=== PATIENT | female | born 1930 | race Caucasian/White ===

== ENCOUNTER → 2018-04-22 | Outpatient (CLI) | payer MEDICARE, OTHER ==
--- NOTE | 2018-04-22 14:02 | Diagnostic Imaging Report ---
INDICATION: Nonambulatory. FINDINGS: There are mild degenerative changes in the right hip. There is no fracture or dislocation. Soft tissues are unremarkable. IMPRESSION: Osteopenia and degenerative changes of right hip, however no acute fracture or dislocation. In light of the degree of osteopenia, if there is a high clinical concern for fracture, further evaluation with CT should be considered. Dictated by: Dictated on workstation # [id number]
--- NOTE | 2018-04-22 14:14 | Diagnostic Imaging Report ---
INDICATION: Pain. FINDINGS: There is a transverse fracture through the proximal phalanx of the right fifth toe. The alignment is otherwise normal. There is no other fracture or dislocation. IMPRESSION: Nondisplaced transverse fracture through the proximal diaphysis of the right fifth toe Dictated by: Dictated on workstation # [id number]
== END ==
LOC: RAD 12:58
PROVIDERS: ATTEND Nurse Practitioner Family
DX: S92.514A Nondisplaced fracture of proximal phalanx of right lesser toe(s), initial encounter for closed fracture (principal); M85.88 Other specified disorders of bone density and structure, other site; M16.11 Unilateral primary osteoarthritis, right hip
CPT/HCPCS: 73502; 73630

== ENCOUNTER → 2018-05-01 | Outpatient (CLI) | payer MEDICARE, OTHER ==
--- NOTE | 2018-05-01 15:49 | Diagnostic Imaging Report ---
PROCEDURE: CT pelvis without contrast. TECHNIQUE: Multiple contiguous axial images were obtained through the pelvis without the use of intravenous contrast. Sagittal and coronal reformations were performed. INDICATION: Right-sided pain. COMPARISON: There are no previous studies available for comparison. FINDINGS: There is no fracture or acute bony abnormality identified. There does appear to be at least moderate degenerative disease of both hip and sacroiliac joints, particularly the right sacroiliac joint. There is no pelvic mass or free fluid collection noted. However, there is a large fecal impaction. The bladder is also distended by urine. The uterus is grossly unremarkable. 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 IMPRESSION: 1. There is no evidence for an acute bony abnormality. 2. If there is clinical concern regarding a sacral insufficiency fractures, then MRI would be recommended for further study. 3. The bladder is distended by urine, and there is a fecal impaction. 4. These results were discussed with Dr. Lopez. Dictated by: Dictated on workstation # [id number]
== END ==
LOC: RAD 15:08
PROVIDERS: ATTEND Family Medicine
DX: N32.89 Other specified disorders of bladder (principal)
CPT/HCPCS: 72192

== ENCOUNTER → 2018-05-15 | Outpatient (CLI) | payer MEDICARE, OTHER ==
--- NOTE | 2018-05-15 16:37 | Diagnostic Imaging Report ---
INDICATION: Followup toe fracture. TIME OF EXAM: 1:59 PM COMPARISON: Correlation is made with prior radiographs from 04/22/2018. FINDINGS: Three views of the right foot were obtained. There is blurring of the fracture at the base of the proximal phalanx fifth toe consistent with some healing. Fracture line does remain partly visible however. No displacement or angulation is seen. No new fractures identified. IMPRESSION: Healing fracture of the proximal phalanx fifth toe. Fracture line does remain partly visible however. Dictated by: Dictated on workstation # [id number]
== END ==
LOC: RAD 13:23
PROVIDERS: ATTEND Nurse Practitioner Family
DX: S92.911D Unspecified fracture of right toe(s), subsequent encounter for fracture with routine healing (principal)
CPT/HCPCS: 73630

== ENCOUNTER 2019-07-18 03:57 | Emergency (ER) | payer MEDICARE, OTHER ==
[~2019-07-18] VITALS: Ht 154 cm; Wt 52.0 kg
--- NOTE | 2019-07-18 04:24 | ED Fall/Injury ---
General Chief Complaint: Laceration Stated Complaint: HEAD LAC Source: patient, EMS, longterm records History of Present Illness Date Seen by Provider: Jul 18, 2019 Time Seen by Provider: 03:57 Initial Comments 88-year-old female presents by EMS from [facility]. She has advanced dementia and presents with having a fall. She has a laceration to her left forehead and denominational area. She had a fall at the [facility] longterm. There are no other obvious injuries. She cannot give any details about her fall due to her dementia. She is moving all extremities and has no complaints. Allergies and Home Medications Allergies Coded Allergies: No Known Drug Allergies (Unverified , 07/18/19) Patient Home Medication List Home Medication List Reviewed: Yes Review of Systems Review of Systems Constitutional: no symptoms reported; No chills, No fever Eyes: Drainage, Inflammation Ears, Nose, Mouth, Throat: no symptoms reported Respiratory: no symptoms reported Cardiovascular: no symptoms reported Gastrointestinal: no symptoms reported Genitourinary: no symptoms reported Musculoskeletal: no symptoms reported Skin: other (laceration to left forehead/denominational area) Past Ocxwqow-Aomdfy-Nrtzcn Hx Past Med/Social Hx: Reviewed Nursing Past Med/Soc Hx Patient Social History Recent Hopitalizations: No Physical Abuse: No Sexual Abuse: No Mistreated: No Fear: No Past Medical History Surgeries: No Respiratory: No Cardiac: Yes Hypertension Neurological: Yes Dementia Genitourinary: No Gastrointestinal: No Musculoskeletal: No Endocrine: No HEENT: No Cancer: Yes Skin, Colon Psychosocial: No Integumentary: No Blood Disorders: No Physical Exam Vital Signs Vital Signs - First Documented 07/18/19 04:05 Temp 35.9 Pulse 76 Resp 16 B/P (MAP) 183/68 (106) Pulse Ox 96 O2 Delivery Room Air Capillary Refill : Height, Weight, BMI Height: '" Weight: lbs. oz. kg; BMI Method: General Appearance: no apparent distress HEENT: other (drainage from both eyes with crusted over eyelids. No ocasio sign. no raccoon sign. No drainage or bleeding from nose or ears. ) Neck: non-tender, full range of motion, supple Cardiovascular: normal peripheral pulses, regular rate, rhythm Respiratory: chest non-tender, lungs clear, normal breath sounds Extremities: normal range of motion, non-tender, normal inspection, normal capillary refill Neurologic/Psychiatric: alert; No oriented x 3 (oriented to self only) Skin: warm/dry, pallor, other (1.8 cm laceration to left forehead/denominational area) [place] Coma Score Best Eye Response: (4) Open Spontaneously Best Verbal Response: (5) Oriented Best Motor Response: (6) Obeys Commands [place] Total: 15 Procedures/Interventions Wound Location: Face (left forehead) Wound Length (cm): 1.8 Wound's Depth, Shape: sub Q Wound Explored: clean Other Closure Supply: Wound Adhesive Progress Wound cleaned with chlorhexidine and sterile water. No foreign bodies seen. Wound edges approximated and sealed with tissue adhesive. pt tolerated procedure well without any immediate complication. Progress/Results/Core Measures Results/Orders Vital Signs/I&O 07/18/19 07/18/19 04:05 04:34 Temp 35.9 Pulse 76 76 Resp 16 16 B/P (MAP) 183/68 (106) 183/68 Pulse Ox 96 96 O2 Delivery Room Air Room Air Progress Progress Note : Progress Note The wound was cleaned with chlorhexidine and sterile water. The laceration was then sealed with Dermabond. The wound edges were well approximated. With no additional injuries noted on exam and since she is not on any blood thinners no additional imaging was performed. Will discharge back to [facility] longterm Departure Impression Primary Impression: Forehead laceration Qualified Codes: S01.81XA - Laceration without foreign body of other part of head, initial encounter Additional Impression: Fall at longterm Qualified Codes: W19.XXXA - Unspecified fall, initial encounter; Y92.129 - Unspecified place in longterm as the place of occurrence of the external cause Disposition: 01 HOME, SELF-CARE Condition: Stable Departure-Patient Inst. Decision time for Depature: 04:32 Referrals: TARA WALLER MD (PCP/Family) Primary Care Physician Patient Instructions: Laceration Repair With Glue (DC), Preventing Falls in the Older Adult Add. Discharge Instructions: Keep wound clean and dry for 24 hours then may wash with soap and water but do not soak the wound. Do not apply antibiotic ointment or lotions to the glue or it will cause the glue to come off early and have the wound open All discharge instructions reviewed with patient and/or family. Voiced understanding. NESTOR SALAZAR MD Jul 18, 2019 04:24
[2019-07-18 04:34] VITALS: BP 183/68
== END 2019-07-18 04:42 | disposition home or self-care (01) ==
LOC: EDUNIT# 03:57 → ER FS 03:58
DX: S01.81XA Laceration without foreign body of other part of head, initial encounter (principal); I10 Essential (primary) hypertension; F03.90 Unspecified dementia, unspecified severity, without behavioral disturbance, psychotic disturbance, mood disturbance, and anxiety; R40.2142 Coma scale, eyes open, spontaneous, at arrival to emergency department; R40.2252 Coma scale, best verbal response, oriented, at arrival to emergency department; R40.2362 Coma scale, best motor response, obeys commands, at arrival to emergency department; Z85.828 Personal history of other malignant neoplasm of skin; Z85.038 Personal history of other malignant neoplasm of large intestine; W19.XXXA Unspecified fall, initial encounter; Y92.129 Unspecified place in nursing home as the place of occurrence of the external cause
CPT/HCPCS: 99283

== ENCOUNTER 2019-08-05 19:11 | Inpatient (IN) | payer MEDICARE, OTHER ==
[~2019-08-05] VITALS: Ht 157.5 cm; Wt 52.0 kg
--- NOTE | 2019-08-05 19:26 | ED Fall/Injury ---
General Stated Complaint: FALL Source: patient, EMS Exam Limitations: clinical condition History of Present Illness Date Seen by Provider: Aug 05, 2019 Time Seen by Provider: 19:10 Initial Comments The patient is a pleasant 88-year-old female from [place] who presents via EMS for evaluation of left pelvis/hip pain after a fall earlier today. The patie nt believes that she hit her head but denies any loss of consciousness or neck pain. She is not anticoagulated. Currently her only complaint is left hip pain. She denies chest pain or shortness of breath, abdominal or back pain, nausea or vomiting, focal weakness or numbness. She is alert, calm, and appears to be in no distress. EMS did give the patient 50 g of fentanyl on route as she appeared quite uncomfortable. Occurred: this afternoon Severity: severe Injuries/Pain Location: lower extremity (left hip) Context: unknown Loss of Consciousness: no loss of consciousness Associated Symptoms (Fall): Denies Symptoms Allergies and Home Medications Allergies Coded Allergies: No Known Drug Allergies (Unverified , 07/18/19) Patient Home Medication List Home Medication List Reviewed: Yes Review of Systems Review of Systems Constitutional: no symptoms reported Eyes: No Symptoms Reported Ears, Nose, Mouth, Throat: no symptoms reported Respiratory: no symptoms reported Cardiovascular: no symptoms reported Gastrointestinal: no symptoms reported Genitourinary: no symptoms reported : No Musculoskeletal: joint pain (left pelvis/hip pain) Skin: no symptoms reported Psychiatric/Neurological: No Symptoms Reported All Other Systems Reviewed Negative Unless Noted: Yes Past Vrxmczt-Xovymu-Sirmmv Hx Past Med/Social Hx: Reviewed Nursing Past Med/Soc Hx Patient Social History Recent Foreign Travel: No Contact w/Someone Who Travel: No Recent Hopitalizations: No Past Medical History Surgeries: No Respiratory: No Cardiac: Yes Hypertension Neurological: Yes Dementia Genitourinary: No Gastrointestinal: No Musculoskeletal: No Endocrine: No HEENT: No Cancer: Yes Skin, Colon Psychosocial: No Integumentary: No Blood Disorders: No Physical Exam Vital Signs Vital Signs - First Documented 08/05/19 19:12 Temp 36.8 Pulse 100 Resp 18 B/P (MAP) 204/170 (181) Pulse Ox 93 O2 Delivery Room Air Capillary Refill : Height, Weight, BMI Height: '" Weight: lbs. oz. kg; 21.00 BMI Method: General Appearance: WD/WN, no apparent distress HEENT: PERRL/EOMI, pharynx normal Neck: non-tender, full range of motion Cardiovascular: regular rate, rhythm, no edema, no JVD Respiratory: chest non-tender, lungs clear, normal breath sounds Gastrointestinal: normal bowel sounds, non tender, soft, no pulsatile mass Back: normal inspection, no vertebral tenderness Extremities: no pedal edema, no calf tenderness, normal capillary refill, other (ttp over left anterior pelvis (ASIS) and left hip laterally, questionable shortening of LLE, pt bending both knees and will not allow movement of left hip 2/2 discomfort) Neurologic/Psychiatric: alert, normal mood/affect Skin: normal color, warm/dry Reading Coma Score Best Eye Response: (4) Open Spontaneously Best Verbal Response: (5) Oriented Best Motor Response: (6) Obeys Commands Progress/Results/Core Measures Results/Orders Lab Results Laboratory Tests Test 08/05/19 19:25 Range/Units White Blood Count 7.0 4.3-11.0 10^3/uL Red Blood Count 5.16 4.35-5.85 10^6/uL Hemoglobin 14.3 11.5-16.0 G/DL Hematocrit 45 35-52 % Mean Corpuscular Volume 87 80-99 FL Mean Corpuscular Hemoglobin 28 25-34 PG Mean Corpuscular Hemoglobin Concent 32 32-36 G/DL Red Cell Distribution Width 14.6 H 10.0-14.5 % Platelet Count 177 130-400 10^3/uL Mean Platelet Volume 11.0 H 7.4-10.4 FL Neutrophils (%) (Auto) 70 42-75 % Lymphocytes (%) (Auto) 18 12-44 % Monocytes (%) (Auto) 10 0-12 % Eosinophils (%) (Auto) 1 0-10 % Basophils (%) (Auto) 0 0-10 % Neutrophils # (Auto) 4.9 1.8-7.8 X 10^3 Lymphocytes # (Auto) 1.2 1.0-4.0 X 10^3 Monocytes # (Auto) 0.7 0.0-1.0 X 10^3 Eosinophils # (Auto) 0.1 0.0-0.3 10^3/uL Basophils # (Auto) 0.0 0.0-0.1 10^3/uL Prothrombin Time 12.7 12.2-14.7 SEC INR Comment 0.9 0.8-1.4 Activated Partial Thromboplast Time < 20 L 24-35 SEC Sodium Level 137 135-145 MMOL/L Potassium Level 5.5 H 3.6-5.0 MMOL/L Chloride Level 101 98-107 MMOL/L Carbon Dioxide Level 22 21-32 MMOL/L Anion Gap 14 5-14 MMOL/L Blood Urea Nitrogen 14 7-18 MG/DL Creatinine 0.75 0.60-1.30 MG/DL Estimat Glomerular Filtration Rate > 60 BUN/Creatinine Ratio 19 Glucose Level 168 H 70-105 MG/DL Calcium Level 9.0 8.5-10.1 MG/DL Corrected Calcium 9.3 8.5-10.1 MG/DL Total Bilirubin 0.2 0.1-1.0 MG/DL Aspartate Amino Transf (AST/SGOT) 35 H 5-34 U/L Alanine Aminotransferase (ALT/SGPT) 21 0-55 U/L Alkaline Phosphatase 158 H 40-136 U/L Total Protein 7.3 6.4-8.2 GM/DL Albumin 3.6 3.2-4.5 GM/DL My Orders Orders - ZANDRA HERMAN DO Chest 1 View Ap/Pa Only (08/05/19 19:18) Pelvis With Left Hip 2-3 View (08/05/19 19:18) Cbc With Automated Diff (08/05/19 19:18) Comprehensive Metabolic Panel (08/05/19 19:18) Protime With Inr (08/05/19 19:18) Partial Thromboplastin Time (08/05/19 19:18) Ct Head/Cervical Spine Wo (08/05/19 19:18) Ed Iv/Invasive Line Start (08/05/19 19:35) Fentanyl Injection (Sublimaze Injection (08/05/19 19:45) Lorazepam Injection (Ativan Injection) (08/05/19 19:45) Fentanyl Injection (Sublimaze Injection (08/05/19 20:45) Ns Iv 1000 Ml (Sodium Chloride 0.9%) (08/05/19 20:45) Medications Given in ED Current Medications Medications Dose Ordered Sig/[place] Route Start Time Stop Time Status Last Admin Dose Admin Fentanyl Citrate 50 mcg ONCE ONCE IVP 08/05/19 19:45 08/05/19 19:46 DC 08/05/19 20:08 50 MCG Fentanyl Citrate 50 mcg ONCE ONCE IVP 08/05/19 20:45 08/05/19 20:46 DC 08/05/19 20:53 50 MCG Lorazepam 0.5 mg ONCE PRN IVP 08/05/19 19:45 08/05/19 19:52 0.5 MG Vital Signs/I&O 08/05/19 19:12 Temp 36.8 Pulse 100 Resp 18 B/P (MAP) 204/170 (181) Pulse Ox 93 O2 Delivery Room Air Progress Progress Note : Progress Note @2044 - Patient and detention nurse updated on x-ray finding of hip fracture and laboratory finding of hyperkalemia. I discussed the case with the patient's daughter, Heath, who agrees with the plan to transfer to [facility]. The case was discussed with the patient's PCP, Dr. Lopez, who agrees with the transfer. She has spoken with Dr. Ramos from orthopedics and states that he accepts the consultation. Patient is stable for transfer. Departure Communication (Admissions) Time/Spoke to Admitting Phy: 20:45 Dr. Lopez states she accepts the admission to the fourth floor at [facility]. She is discussed the case with Dr. Ramos (ortho) who accepts the consultation. Impression Primary Impression: Closed left hip fracture Additional Impression: Acute hyperkalemia Disposition: ADMITTED INPATIENT Condition: Stable Admissions Decision to Admit Reason: Admit from ER (General) Decision to Admit/Date: Aug 05, 2019 Time/Decision to Admit Time: 20:45 Departure-Patient Inst. Referrals: TARA LOPEZ MD (PCP/Family) Primary Care Physician ZANDRA HERMAN DO Aug 05, 2019 19:26 POS
[2019-08-05 19:34] LABS: BASOPHILS % (AUTO) 0 % (0-10); EOSINOPHILS # (AUTO) 0.1 10^3/uL (0.0-0.3); EOSINOPHILS % (AUTO) 1 % (0-10); HEMATOCRIT 45 % (35-52); HEMOGLOBIN 14.3 G/DL (11.5-16.0); LYMPHOCYTES # (AUTO) 1.2 X 10^3 (1.0-4.0); LYMPHOCYTES % (AUTO) 18 % (12-44); MEAN CORPUSCULAR HEMOGLOBIN 28 PG (25-34); MEAN CORPUSCULAR HGB CONC 32 G/DL (32-36); MEAN CORPUSCULAR VOLUME 87 FL (80-99); MONOCYTES # (AUTO) 0.7 X 10^3 (0.0-1.0); MONOCYTES % (AUTO) 10 % (0-12); NEUTROPHILS # (AUTO) 4.9 X 10^3 (1.8-7.8); NEUTROPHILS % (AUTO) 70 % (42-75); PLATELET COUNT 177 10^3/uL (130-400); RED CELL DISTRIBUTION WIDTH 14.6 % (10.0-14.5)
[2019-08-05] MEDS ORDERED: LORazepam INJ 2 MG/ML (ATIVAN) VIAL IVP PRN (19:45)
[2019-08-05] MEDS ORDERED: fentaNYL INJECTION 100 MCG/2 ML AMP IVP ONE ×2 (19:45→20:45)
[2019-08-05 19:49] LABS: INR 0.9 (0.8-1.4); PARTIAL THROMBOPLASTIN TIME < 20 SEC (24-35); PROTHROMBIN TIME PATIENT 12.7 SEC (12.2-14.7)
[2019-08-05 19:52] LABS: CARBON DIOXIDE 22 MMOL/L (21-32); CHLORIDE 101 MMOL/L (98-107); POTASSIUM 5.5 MMOL/L (3.6-5.0); SODIUM 137 MMOL/L (135-145)
[2019-08-05 19:53] LABS: ALANINE AMINOTRANSFERASE 21 U/L (0-55); ALBUMIN 3.6 GM/DL (3.2-4.5); ALKALINE PHOSPHATASE 158 U/L (40-136); BILIRUBIN,TOTAL 0.2 MG/DL (0.1-1.0); BUN/CREATININE RATIO 19; CREATININE SERUM 0.75 MG/DL (0.60-1.30); GFR ESTIMATED > 60; GLUCOSE 168 MG/DL (70-105); TOTAL PROTEIN 7.3 GM/DL (6.4-8.2)
--- NOTE | 2019-08-05 20:18 | Diagnostic Imaging Report ---
PROCEDURE: CT head and CT cervical spine without contrast. TECHNIQUE: Multiple contiguous axial images were obtained through the brain and cervical spine without the use of intravenous contrast. Sagittal and coronal reformations through the cervical spine were then performed. Auto Exposure Controls were utilized during the CT exam to meet ALARA standards for radiation dose reduction. INDICATION: Fell out of wheelchair. CT HEAD: There is diffuse atrophy. There is considerable motion artifact. Ventricles are not dilated. No evidence of intracranial hemorrhage. No extra-axial fluid collection. Basal cisterns are clear. Mastoid air cells are well-aerated. No calvarial fracture is demonstrated. IMPRESSION: Negative CT head which is limited due to patient motion. CT CERVICAL SPINE: Sagittal and coronal reformatted images show good alignment. Body height well-maintained. The atlantoaxial joint is in good alignment. Facets show good alignment. Advanced degenerative cervical disc and facet disease noted throughout. No significant spinal stenosis noted. There are no acute fractures. There is noted rather large exostosis off of the palate in the upper mouth. Soft tissues otherwise appear normal. IMPRESSION: 1. Advanced degenerative cervical disc and facet disease without acute abnormalities. 2. Large exostosis is noted along the roof of the mouth arising from the maxilla. This is only partially visualized. Dictated by: Dictated on workstation # [id number]
--- NOTE | 2019-08-05 20:20 | Diagnostic Imaging Report ---
INDICATION: Fall. Left hip pain. FINDINGS: Portable chest. The lungs are well aerated. There is cardiomegaly. There does appear to be some atelectasis or infiltrate in the left lower lung in retrocardiac region. No evidence of pleural effusion. No pneumothorax. There are multiple dense benign-appearing calcifications in left upper lung. No evidence of rib fracture. IMPRESSION: 1. Cardiomegaly. 2. Density in the retrocardiac region consistent with either atelectasis or pulmonary infiltrate. Dictated by: Dictated on workstation # [id number]
--- NOTE | 2019-08-05 20:21 | Diagnostic Imaging Report ---
INDICATION: Fall. FINDINGS: 3 views. There is a subcapital fracture of the left femur. Femoral head is in normal articulation with the acetabulum. Right hip is intact. Moderate degenerative changes are noted. Bony pelvis shows good alignment of the SI joints and pubic symphysis without fracture. IMPRESSION: Subcapital fracture of the left femur. Dictated by: Dictated on workstation # [id number]
[2019-08-05] MEDS ORDERED: NS IV 1000 ML 500 ML IV SCH (20:45)
[2019-08-05] MEDS ORDERED: LORazepam INJ 2 MG/ML (ATIVAN) VIAL IVP ONE (21:30)
[2019-08-05 23:15] VITALS: BP 195/106
--- NOTE | 2019-08-05 23:15 | NUR ---
MURCIALIZ admitted to room 432-1, with an admitting diagnosis of left hip fracture and hyperkalemia, on 08/05/19 from [facility] via EMS, accompanied by EMS and daughter. Daughter and patient introduced to surroundings, call light, bed controls, phone, TV, temperature control, lights, meal times, smoking policy, visitor policy, side rail policy, bathrooms and showers. Patient Rights given to patient in the handbook. Daughter verbalizes understanding that [facility] is not responsible for the loss or damage to any personal effects or valuables that are kept in the patients possession during their hospitalization.
[2019-08-05] MEDS ORDERED: LORazepam INJ 2 MG/ML (ATIVAN) VIAL IV PRN (23:45)
[2019-08-06] VITALS (10 sets, daily range): BP systolic 132–182; BP diastolic 69–82
--- NOTE | 2019-08-06 | NUR ---
Dr. Lopez notified of bp running high in ER and EMS on transport with current BP at 195/106 hr at 89. also informed of DVT risk score, pt attempting to get out of bed, code status, and IV to heplock. New orders rec for NS at 50 mls/hr; Norvasc 5mg po at HS (give dose now), Hydralazine 10mg PO q 6 hr PRN for SBP > 150; DNR/DNI; Haldol 2mg IV/IM q 6 hr PRN agitation; SCD to right leg only for DVT prophylaxis at this time.
[2019-08-06] MEDS ORDERED: amLODIPine 5 MG (NORVASC) TAB ONE (00:11)
[2019-08-06] MEDS ORDERED: HALOPERIDOL 5 MG/ML (HALDOL) AMP ONE (00:11)
[2019-08-06] MEDS ORDERED: NS IV 1000 ML 1,000 ML ONE (00:13)
[2019-08-06] MEDS ORDERED: HALOPERIDOL 5 MG/ML (HALDOL) AMP IM/IV PRN (00:15)
[2019-08-06] MEDS: amLODIPine 5 MG (NORVASC) TAB PO SCH ×2 (00:21→21:15)
[2019-08-06] MEDS: NS IV 1000 ML 1,000 ML IV SCH ×2 (00:21→21:06)
[2019-08-06] MEDS ORDERED: PARO25TA15 PO (03:32)
[2019-08-06] MEDS ORDERED: POLY17PO6 PO (03:32)
[2019-08-06] MEDS ORDERED: NSTR15C TP (03:32)
[2019-08-06] MEDS ORDERED: CHOL10007 PO (03:32)
[2019-08-06] MEDS ORDERED: CYAN-41 PO (03:32)
[2019-08-06] MEDS ORDERED: HALO5AMP PO (03:32)
[2019-08-06] MEDS ORDERED: SENN-141 PO (03:43)
[2019-08-06] MEDS ORDERED: FERR325T18 PO (03:43)
[2019-08-06] MEDS ORDERED: AMLO5TAB9 PO (03:43)
[2019-08-06] MEDS ORDERED: NA P133E22 RC (03:43)
[2019-08-06] MEDS ORDERED: ABH GEL TOP (03:43)
[2019-08-06] MEDS ORDERED: CARB15DR OU (03:43)
[2019-08-06] MEDS ORDERED: NITR1OIN TD (03:43)
[2019-08-06] MEDS ORDERED: DICL100G18 TP (03:43)
[2019-08-06] MEDS ORDERED: ACET325T38 PO (03:43)
[2019-08-06] MEDS ORDERED: NYST15CR TP (08:26)
[2019-08-06] MEDS ORDERED: ACET-2429 PO (08:26)
[2019-08-06] MEDS ORDERED: SENN-145 PO (08:26)
[2019-08-06] MEDS ORDERED: HALO2ORA PO (08:26)
[2019-08-06] MEDS ORDERED: PETR18JE3 TP (08:30)
--- NOTE | 2019-08-06 08:31 | NUR ---
UPDATED MED REC WITH MAR THAT WAS ON THE PATIENTS CHART.
--- NOTE | 2019-08-06 08:39 | History & Physical ---
History of Present Illness History of Present Illness Reason for visit/HPI PT IS AN 88 Y/O FEMALE WHO IS KNOWN TO ME FROM CLINIC. SHE PRESENTED TO THE [facility] AFTER SUSTAINING A FALL AT THE NURSING WHERE SHE RESIDES. SHE HAS BEEN NON-AMBULATORY FOR QUITE SOME TIME DUE TO HER ADVANCED DEMENTIA. SHE HAS HAD SEVERAL FALLS OVER THE PAST MONTH WITH THIS LAST FALL RESULTING IN A LEFT SUBCAPITAL HIP FRACTURE. Date of Admission Aug 05, 2019 at 21:15 Date Seen by a Provider: Aug 06, 2019 Time Seen by a Provider: 08:55 I consulted on this patient on 08/06/19 08:55 Attending Physician Tara Lopez MD Admitting Physician Tara Lopez MD Consult ORTHOPEDIC SURGEON Allergies and Home Medications Allergies Coded Allergies: No Known Drug Allergies (Unverified , 07/18/19) Home Medications Acetaminophen 650 Mg Tablet.er, 650 MG PO Q4H PRN for PAIN-MILD, (Reported) Amlodipine Besylate 5 Mg Tablet, 5 MG PO DAILY, (Reported) Carboxymethylcellulose Sodium 15 Ml Drops, 2 DROPS OU BID, (Reported) Cholecalciferol (Vitamin D3) 1,000 Unit Capsule, 1,000 UNIT PO DAILY, (Reported) Cyanocobalamin (Vitamin B-12) 1,000 Mcg Tablet, 1,000 MCG PO DAILY, (Reported) Diclofenac Sodium 100 Gm Gel..gram., TP QID PRN for JOINT PAIN, (Reported) APPLY TO ANKLE, KNEE, RIGHT HIP, AND OR BACK Ferrous Sulfate 325 Mg Tablet, 325 MG PO DAILY, (Reported) Haloperidol Lactate 2 Mg/1 Ml Oral.conc, 0.25 ML PO TID, (Reported) Na Phos,M-B/Na Phos,Di-Ba 133 Ml Enema, 133 ML RC BID PRN for CONSTIPATION, (Reported) Nitroglycerin 1 Gm Oint...g., 0.5 INCH TD Q4H PRN for BP>170, (Reported) APPLY 1/2 INCH TO CHEST WALL Nystatin 15 Gm Cream..g., TP QID PRN for GAULDING, (Reported) Paroxetine HCl 25 Mg Tab.er.24h, 25 MG PO DAILY, (Reported) Petrolatum,White 18 Ml Jelly.ml., TP BID, (Reported) APPLY TO DRY AREA ON RIGHT CHEEK TWICE DAILY UNTIL HEALED Polyethylene Glycol 3350 17 Gm Powd.pack, 17 GM PO DAILY PRN for CONSTIPATION- 2ND LINE, (Reported) Sennosides/Docusate Sodium 1 Each Tablet, 1 TAB PO BID, (Reported) [Abh Gel] , 0.25 ML TOP TID PRN for AGITATION, (Reported) ABH GEL (Ativan, Benadryl, Haldol) - apply to inner wrist or upper back TID PRN agitation Patient Home Medication List Home Medication List Reviewed: Yes Past Pxlcisg-Tmvmnr-Izfpud Hx Past Med/Social Hx: Reviewed Nursing Past Med/Soc Hx Patient Social History Marrital Status: Number of Children: 2 Number of living children: 2 Living Status: LIVES IN [facility] Employed/Student: retired Alcohol Use: Denies Use Recreational Drug Use: No Smoking Status: Never a Smoker 2nd Hand Smoke Exposure: No Physical Abuse Screen: No Sexual Abuse: No Recent Foreign Travel: No Contact w/other who traveled: No Recent Hopitalizations: No Recent Infectious Disease Expo: No Immunizations Up To Date Date of Influenza Vaccine: Jul 08, 2019 Seasonal Allergies Seasonal Allergies: No Past Medical History Currently Using CPAP: No Currently Using BIPAP: No Cardiac: Hypertension Neurological: Dementia : No Reproductive: No Sexually Transmitted Disease: No HIV/AIDS: No Female Reproductive Disorders: Denies Menopausal Loss of Vision: Denies Hearing Impairment: Hard of Hearing Cancer: Skin, Colon History of Blood Disorders: No Family History Reviewed Nursing Family Hx FH: breast cancer G8 SISTER FH: heart disease 19 FATHER Heart Disease, Cancer Review of Systems Constitutional: No chills, No fever; malaise, weakness EENTM: No hoarseness, No throat pain Respiratory: No cough, No dyspnea on exertion, No short of breath Cardiovascular: No edema Gastrointestinal: No abdominal pain Genitourinary: no symptoms reported Musculoskeletal: other (PAIN IN LEFT HIP) Psychiatric/Neurological: Anxiety, Depressed, Weakness, Other (DEMENTIA) All Other Systems Reviewed Negative Unless Noted: Yes Physical Exam Vital Signs Vital Signs - First Documented 08/05/19 08/05/19 19:12 22:14 Temp 36.8 Pulse 100 Resp 18 B/P (MAP) 204/170 (181) Pulse Ox 93 O2 Delivery Room Air O2 Flow Rate 4.00 Capillary Refill : Less Than 3 SecondsLess Than 3 Seconds Height, Weight, BMI Height: '" Weight: lbs. oz. kg; 20.96 BMI Method: General Appearance: No Apparent Distress (PT SLEEPING), Thin Neck: Supple Respiratory: Chest Non Tender, Lungs Clear, Normal Breath Sounds, No Accessory Muscle Use, No Respiratory Distress Cardiovascular: Regular Rate, Rhythm Gastrointestinal: Normal Bowel Sounds, Non Tender, Soft Rectal: Deferred Extremity: Normal Capillary Refill, No Calf Tenderness, No Pedal Edema, Swelling (LEFT LATERAL HIP) Neurologic/Psychiatric: Other (PT SLEEPING - SEDATED FROM PAIN MEDICATION) Skin: Normal Color, Warm/Dry Lymphatic: No Adenopathy Assessment/Plan Assessment and Plan LEFT SUBCAPITAL HIP FRACTURE HYPERTENSION DEMENTIA - ADVANCED ANEMIA 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 - PT IS NOT A REHAB CANDIDATE DUE TO HER ADVANCED DEMENTIA AND INABILITY TO FOLLOW ORDERS WELL HER DEBILITY HYPERTENSION - RESTART HOME MEDICATION REGIMEN, MONITOR BLOOD PRESSURE CLOSELY, PRN MEDICATIONS HAVE BEEN ORDERED. DEMENTIA - ADVANCED - WITH HX OF AGITATED BEHAVIORS - PT TO CONTINUE WITH HALDOL FOR TREATMENT - SHE CANNOT TAKE RISPERDAL DUE TO SEVERE URINARY RETENTION WITH THIS MEDICATION IN THE PAST. ANEMIA - PT USUALLY ON IRON - WILL HOLD WHILE IN THE HOSPITAL. 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 Clinical Quality Measures DVT/VTE Risk/Contraindication: Risk Factor Score Per Nursin RFS Level Per Nursing on Admit: 4+=Very High TARA LOPEZ MD Aug 06, 2019 08:39 POS
[2019-08-06] MEDS ORDERED: ABH TOP PRN (09:30)
[2019-08-06] MEDS ORDERED: NYSTATIN CREAM (MYCOSTATIN) 30 GM TUBE TP PRN (09:30)
--- NOTE | 2019-08-06 09:50 | Consultation - Ortho ---
Consult - Ortho Subjective Date of Exam 08/06/19 Chief Complaint Displaced subcapital fracture left hip HPI/Events since last exam Mrs. June is an 88-year-old white female who has fallen multiple times in the past week. Her daughter thinks she fell about 4 times. She was seen in the emergency room in [facility] yesterday where she evaluated and x-rayed and noted to have a displaced subcapital fracture left hip. He called Dr. Lopez and she recommended transfer to [facility] for possible surgical treatment. Mrs. June has not ambulated for at least 8 months. She has significant dementia and weakness in the lower extremities. They tried therapy but she was unable to am bulate or continue to ambulate. Unable to obtain a history from the patient due to her dementia. I did speak with her daughter who is with her in the room. Medical, Surgical History Reviewed and no additions or changes Social History Reviewed and no additions or changes Family History Reviewed and no additions or changes Review of Systems Reviewed and no additions or changes Allergies: Coded Allergies: No Known Drug Allergies (Unverified , 07/18/19) Home Meds Reported Medications Petrolatum,White (Vaseline) 18 Ml Jelly.ml., TP BID, TUBE APPLY TO DRY AREA ON RIGHT CHEEK TWICE DAILY UNTIL HEALED 08/06/19 Acetaminophen (Acetaminophen 8 Hour) 650 Mg Tablet.er, 650 MG PO Q4H PRN for PAIN-MILD, TAB 08/06/19 Sennosides/Docusate Sodium (Senna S Tablet) 1 Each Tablet, 1 TAB PO BID, TAB 08/06/19 Haloperidol Lactate (Haloperidol Lactate) 2 Mg/1 Ml Oral.conc, 0.25 ML PO TID, ML 08/06/19 Nystatin (Nystatin) 15 Gm Cream..g., TP QID PRN for GAULDING, TUBE 08/06/19 Carboxymethylcellulose Sodium (Refresh Tears) 15 Ml Drops, 2 DROPS OU BID, EA 08/06/19 Diclofenac Sodium (Voltaren) 100 Gm Gel..gram., TP QID PRN for JOINT PAIN, EA APPLY TO ANKLE, KNEE, RIGHT HIP, AND OR BACK 08/06/19 Na Phos,M-B/Na Phos,Di-Ba (Fleet Enema) 133 Ml Enema, 133 ML RC BID PRN for CONSTIPATION, EA 08/06/19 [Abh Gel] No Conflict Check, 0.25 ML TOP TID PRN for AGITATION ABH GEL (Ativan, Benadryl, Haldol) - apply to inner wrist or upper back TID PRN agitation 08/06/19 Nitroglycerin (Nitro-Bid) 1 Gm Oint...g., 0.5 INCH TD Q4H PRN for BP>170, EA APPLY 1/2 INCH TO CHEST WALL 08/06/19 Ferrous Sulfate (Ferrous Sulfate) 325 Mg Tablet, 325 MG PO DAILY, TAB 08/06/19 Amlodipine Besylate (Amlodipine Besylate) 5 Mg Tablet, 5 MG PO DAILY, TAB 08/06/19 Cholecalciferol (Vitamin D3) (Vitamin D3) 1,000 Unit Capsule, 1000 UNIT PO DAILY, CAP 08/06/19 Polyethylene Glycol 3350 (Miralax) 17 Gm Powd.pack, 17 GM PO DAILY PRN for CONSTIPATION-2ND LINE, EA 08/06/19 Cyanocobalamin (Vitamin B-12) (Vitamin B-12) 1,000 Mcg Tablet, 1000 MCG PO DAILY, TAB 08/06/19 Paroxetine HCl (Paxil Cr) 25 Mg Tab.er.24h, 25 MG PO DAILY, TAB 08/06/19 Discontinued Reported Medications Acetaminophen (Tylenol) 325 Mg Tablet, 325 MG PO Q6H PRN for PAIN-MILD 08/06/19 Sennosides (Senna) 8.6 Mg Tablet, 8.6 MG PO BID 08/06/19 Haloperidol Lactate (Haldol) 5 Mg/1 Ml Ampul, 2 MG PO TID PRN for AGITATION 08/06/19 Nystatin/Triamcinolone (Nystatin-Triamcinolone Cream) 15 Gm Cr, 1 APPLIC TP QID PRN for RASH, TUBE 08/06/19 Objective Exam Constitutional: [] HEENT: [] Neck: [] No pain with palpation or range of motion Cardiovascular: [] Respiratory: [] Gastrointestinal: [] Genitourinary: [] Skin: [] Back/Spine: [] No pain with palpation Extremities: [] Upper extremities no deformity or swelling. No pain with range of motion. Unable to perform sensory exam due to the patient's dementia. Equal pulses. Equal capillary refill. Lower extremitiesthere is pain with range of motion left hip. She holds both hips up in flexion with knees in flexion. A position lying mainly on her right side of her back. Again unable determine sensory exam. No swelling in the calves. Equal pulses Neurologic: [] Psychiatric: [] Hematologic/lymphatic/immunologic: [] Vital Signs Vital Signs Date Time Temp Pulse Resp B/P (MAP) Pulse Ox O2 Delivery O2 Flow Rate FiO2 08/06/19 08:00 37.0 87 16 132/82 (99) 93 08/06/19 07:00 80 08/06/19 02:00 76 150/76 (100) 91 Room Air 08/06/19 01:00 95 08/05/19 23:15 92 Room Air 08/05/19 23:15 36.8 89 22 195/106 92 Room Air 08/05/19 23:15 36.8 89 22 195/106 (135) 92 Room Air 08/05/19 22:14 90 16 158/62 92 OxyMask 4.00 08/05/19 19:12 36.8 100 18 204/170 (181) 93 Room Air I & O 08/06/19 07:00 Intake Total 500 ml Output Total 900 ml Balance -400 ml Lab Results Laboratory Tests 08/05/19 19:25: White Blood Count 7.0, Red Blood Count 5.16, Hemoglobin 14.3, Hematocrit 45, M eduardo Corpuscular Volume 87, Mean Corpuscular Hemoglobin 28, Mean Corpuscular Hemoglobin Concent 32, Red Cell Distribution Width 14.6H, Platelet Count 177, Mean Platelet Volume 11.0H, Neutrophils (%) (Auto) 70, Lymphocytes (%) (Auto) 18, Monocytes (%) (Auto) 10, Eosinophils (%) (Auto) 1, Basophils (%) (Auto) 0, Neutrophils # (Auto) 4.9, Lymphocytes # (Auto) 1.2, Monocytes # (Auto) 0.7, Eosinophils # (Auto) 0.1, Basophils # (Auto) 0.0, Prothrombin Time 12.7, INR Comment 0.9, Activated Partial Thromboplast Time < 20L, Sodium Level 137, Potassium Level 5.5H, Chloride Level 101, Carbon Dioxide Level 22, Anion Gap 14, Blood Urea Nitrogen 14, Creatinine 0.75, Estimat Glomerular Filtration Rate > 60, BUN/Creatinine Ratio 19, Glucose Level 168H, Calcium Level 9.0, Corrected Calcium 9.3, Total Bilirubin 0.2, Aspartate Amino Transf (AST/SGOT) 35H, Alanine Aminotransferase (ALT/SGPT) 21, Alkaline Phosphatase 158H, Total Protein 7.3, Albumin 3.6 Imaging X-ray of the pelvis and left hip shows a displaced subcapital fracture Assessment and Plan Assessment Displaced subcapital fracture left hip Problem List No additions or changes Plan Treatment options were discussed with the patient's daughter. I talked to her about nonoperative treatment with bedrest and then bed to chair. There is i ncreased risk of pulmonary issues as well as skin breakdown with prolonged bed rest. The other option would be surgical treatment which would be a cemented bipolar hemiarthroplasty. This obviously has risks with anesthesia, infection, DVT, blood loss. With her age and condition that's possible she may not survive the surgery or immediate postop period. He daughter has talked with the son who is coming up for him and they both would like proceed with surgery once a talked to me. Again they understand the procedure risks, complications would like to proceed. Also understand the postop since she can't cooperate she may dislocate the hip and then we'll have to decide how much they wanted do after that. We'll we'll try to keep her mobilized keep her hip from dislocating. Is scheduled for surgery this morning at approximately 1030 Final Diagonsis Displaced subcapital fracture left hip Level of the visit: Level 3 STEVAN DOUGHERTY MD Aug 06, 2019 09:50 POS
[2019-08-06] MEDS ORDERED: NEO/POLY/BAC (NEOSPORIN) OINT 15 GM TUBE ONE (09:54)
[2019-08-06] MEDS ORDERED: LIDOCAINE PF 0.5% 50 ML (XYLOCAINE) VIAL ONE (10:00)
[2019-08-06] MEDS ORDERED: ceFAZolin 2 GM IV Premixed 50 ML IV ONE (10:00)
--- NOTE | 2019-08-06 10:17 | NUR ---
SURGICAL TEAM HERE AT THIS TIME TO TAKE PATIENT FOR HIP SURGERY VIA CART. 2000 MG ANCEF IV ROUTE SENT WITH THIS PATIENT/ SURIGAL STAFF ONCALL TO OR.
[2019-08-06] MEDS ORDERED: LACTATED RINGERS 1,000 ML IV PRN (10:24)
[2019-08-06] MEDS ORDERED: fentaNYL INJECTION 100 MCG/2 ML AMP IVP ONE (10:30)
[2019-08-06] MEDS ORDERED: ONDANSETRON 4 MG/2 ML (SDV) Z0FRAN IVP PRN (10:30)
[2019-08-06] MEDS ORDERED: KETAMINE/NaCl 50 MG/5 ML SYRINGE (ED ONLY) ONE (10:34)
[2019-08-06] MEDS ORDERED: MIDAZOLAM 2 MG/2 ML (VERSED) VIAL ONE (10:35)
[2019-08-06] MEDS ORDERED: fentaNYL INJECTION 100 MCG/2 ML AMP ONE (10:37)
[2019-08-06] MEDS ORDERED: BUPIVACAINE 0.5% 30 ML (SENSORCAINE) VIAL ONE (11:32)
[2019-08-06] MEDS ORDERED: GLYCOPYRROLATE 0.2 MG/ML (ROBINUL) 2 ML VIAL ONE (12:53)
[2019-08-06] MEDS ORDERED: fentaNYL INJECTION 100 MCG/2 ML AMP IVP PRN (13:30)
--- NOTE | 2019-08-06 13:37 | Operative Report - Ortho ---
Operative Report Surgeon (s)/Environmental Web Crawler (s) Surgeon STEVAN DOUGHERTY MD Environmental Web Crawler n/a Pre-Operative Diagnosis displaced subcapital fracture left hip Post-Operative Diagnosis same Operative Report Date of Procedure: Aug 06, 2019 Name of Procedure Performed: Cemented bipolar hemiarthroplasty left hip Number 4 cemented stem, 28 x 44 bipolar head with a +1.5 femoral neck Description & Findings The patient was brought to the operating room in her hospital bed and after administration of spinal anesthesia was placed on the OR table. She was placed in the lateral decubitus position with the left side up on the peg board and pegs were applied stabilize the pelvis and the thorax. The patient received 2 g Ancef IV preoperatively. The left hip and leg were then prepped and draped in the usual sterile manner. Timeout was performed. An incision was made over the proximal femur extending proximally and posteriorly at the tip of the greater trochanter. This was taken down through subjacent tissue. Small bleeders were cauterized. The iliotibial band and gluteal fascia were split in line with the skin incision and retracted with the Charnley retractor. Hip was then flexed and internally rotated. The piriformis tendon was identified and tagged and then the piriformis tendon and short external rotators were released off the posterior aspect of the greater trochanter. Capsule was intact and was teed. Head was then removed with a corkscrew and measured at 43 mm. The neck was taken down to approximately 12 mm above the lesser trochanter. The acetabulum was inspected and no debris was noted. The ligamentous teres was removed. The 43 mm trial head was inserted and found to fit well but a 44 mm was felt to be more stable. At this point the proximal femur was prepared using a box osteotome and then broaches up to a number 4 broach which was found to fit well. The hip was trialed with a number 4 broach with a 5 mm neck and the 44 mm head. There was no pistoning but full extension could not be obtained part of it due to the fact that the patient had about a 15 flexion contracture. It was felt that the neck was a little bit long so the hip was then trialed with a 1.5 mm neck which was more stable in an additional 2 mm were taken off of the neck. At this point the trials were removed. A cement plug was placed proximally 1.5 cm distal to the tip of the stem. The canal was irrigated and suctioned and the cement was inserted with the cement gun once ready. This is an pressurized proximally. Stem was inserted and excess cement was removed. Stem was in approximately 15 of anteversion. Once the cemented hardened the bipolar head was inserted and tapped in place. The hip was reduced and found to be stable with no pistoning and improved range of motion compared to the longer neck. At this point the wound was irrigated with pressurized irrigation. The capsule was closed with #1 Vicryl. 2 drill holes were placed through the greater trochanter for the capsule suture and the piriformis suture. The hip was then placed in neutral as the sutures tied over the posterior aspect of the greater trochanter. The hip was then irrigated and the Charnley retractor was removed. The gluteal fascia and iliotibial band were closed with interrupted #1 Vicryl sutures. The subtendinous tissue was closed with #1 Vicryl and 2-0 Vicryl. The skin was then closed with isabella. The wound was dressed with antibiotic ointment, Adaptic and 4 x 4's as well as an ABG which were all taped in position. An abduction pillow was then placed between the legs. Again the patient was noted to have hip flexion contractures and knee contractures but was able be placed in abduction pillow. The patient was then placed supine on the OR table and a fascial ileitis block was inserted by anesthesia. The patient was then transferred to recovery room in good condition, she tolerated the procedure well. Estimated blood [id number] mL's Replacementnone Drainsnone Complicationsnone n/a Anesthesia Type Spinal Estimated Blood Loss 100 mL Packing none. Specimen(s) collected/removed Femoral head STEVAN DOUGHERTY MD Aug 06, 2019 13:37 POS
--- NOTE | 2019-08-06 13:43 | NUR ---
PATIENT BACK TO FLOOR AT THIS TIME VIA CART, ACCOMPANIED BY JAYCOB LYNN. REPORT RECEIVED FROM JAYCOB LYNN AT THIS TIME.
--- NOTE | 2019-08-06 13:45 | NUR ---
Pt returned to floor, Report received from Maddie DEVRIES. Pt sleepy/easily aroused, pt currently on 4L via mask, call light in reach,bed alarm set, VSS, Good pulses in LLE. Will continue to monitor
--- NOTE | 2019-08-06 13:54 | Physical Therapy Progress Note ---
Therapy Progress Note Orders received for PT evaluation. Pt just returning from surgery. Will complete PT evaluation 08/07/19. AUSTIN PULIDO PT Aug 06, 2019 13:54 POS
--- NOTE | 2019-08-06 13:54 | Diagnostic Imaging Report ---
INDICATION: Postop left hip replacement. TECHNIQUE: An AP view of the left hip was obtained at 1:21 PM. FINDINGS: The left hip prosthesis appears in good alignment. There is no sign of fracture or device loosening. There is no unexpected foreign body post surgery. IMPRESSION: Well aligned left hip prosthesis with no unexpected foreign body post surgery. Dictated by: Dictated on workstation # [id number]
[2019-08-06] MEDS: LACTATED RINGERS 1,000 ML IV SCH (14:32)
[2019-08-06] MEDS: HALOPERIDOL 0.5 MG (HALDOL) TAB PO SCH ×2 (14:32→21:19)
--- NOTE | 2019-08-06 14:33 | NUR ---
patient very sedated after returning from hip surgery. Wasted the remainder of the haladol with JAYCOB Rodriguez because patient wouldn't wake up. oxy mask on at this time and daughter remains at beside of this patient.
--- NOTE | 2019-08-06 15:55 | NUR ---
RT NOTIFIED AT THIS TIME OF NEED FOR INCENTIVE SPIROMETRY.
[2019-08-06] MEDS: ceFAZolin 2 GM IV Premixed 50 ML IV SCH ×2 (18:04→21:20)
[2019-08-06] MEDS ORDERED: POLYETHYLENE GLYCOL 17 GM (MIRALAX) PACK PO PRN (21:00)
[2019-08-06] MEDS: SENNA W/DOCUSATE (SENOKOT S) TABLET PO SCH (21:15)
[2019-08-06] MEDS: ARTIFICAL TEARS 0.4 ML UNIT DOSE (REFRESH PLUS) OU SCH (21:16)
[2019-08-07] VITALS (9 sets, daily range): BP systolic 100–198; BP diastolic 61–95
[2019-08-07] MEDS: LACTATED RINGERS 1,000 ML IV SCH ×3 (00:23→13:56)
[2019-08-07] MEDS: ENOXAPARIN 40 MG/0.4 ML (LOVENOX) SYR SC SCH (01:17)
[2019-08-07] MEDS: HYDROcodone/APAP 5 MG/325 MG (LORTAB) TAB PO PRN (01:38)
[2019-08-07] MEDS: ACETAMINOPHEN 325 MG TABLET PO PRN (03:53)
[2019-08-07] MEDS: fentaNYL INJECTION 100 MCG/2 ML AMP IV PRN (03:54)
[2019-08-07] MEDS: ceFAZolin 2 GM IV Premixed 50 ML IV SCH (05:38)
[2019-08-07 06:50] LABS: HEMOGLOBIN 11.5 G/DL (11.5-16.0)
--- NOTE | 2019-08-07 08:45 | Progress Note ---
Subjective Date Seen by a Provider: Aug 07, 2019 Time Seen by a Provider: 08:40 Subjective/Events-last exam PT IS AN 88 Y/O FEMALE WHO IS KNOWN TO ME FROM CLINIC - SHE HAS A LEFT HIP FRACTURE AND IS MINIMALLY RESPONSIVE TODAY. PHYSICAL THERAPY IS IN THE ROOM SITTING PT UP TO SIDE OF BED WITH PT HAVING SOME PAIN RESPONSE AND ATTEMPTING TO PULL HER LEGS TOGETHER. Review of Systems General: No Chills; Fatigue, Malaise Pulmonary: No Dyspnea, No Cough Cardiovascular: No: Chest Pain, Palpitations, Edema Gastrointestinal: No: Nausea, Vomiting, Abdominal Pain Genitourinary: Incontinence Musculoskeletal: leg pain (WITH MOVEMENT) Neurological: Weakness, Confusion Objective Exam Last Set of Vital Signs Vital Signs Date Time Temp Pulse Resp B/P (MAP) Pulse Ox O2 Delivery O2 Flow Rate FiO2 08/07/19 08:00 36.9 76 16 100/66 (77) 92 Nasal Cannula 2.00 Capillary Refill : Less Than 3 SecondsLess Than 3 Seconds I&O Intake and Output 08/07/19 00:00 Intake Total 100 ml Output Total 1555 ml Balance -1455 ml Intake Oral 0 ml IV Total 100 ml Output Urine Total 1555 ml General: Alert, Oriented X3, Cooperative, No Acute Distress HEENT: Atraumatic, PERRLA Neck: Supple Lungs: Clear to Auscultation, Normal Air Movement Heart: Regular Rate Abdomen: Normal Bowel Sounds, Soft Extremities: No Cyanosis Psych/Mental Status: Other (CONFUSED, DEMENTED) Results Lab Laboratory Tests 08/07/19 06:29: Hemoglobin 11.5, Hematocrit 37 Microbiology 08/06/19 MRSA Screen - Final, Complete MRSA not isolated Assessment/Plan Assessment/Plan Assess & Plan/Chief Complaint LEFT SUBCAPITAL HIP FRACTURE HYPERTENSION DEMENTIA - ADVANCED ANEMIA 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 DEMENTIA - ADVANCED - WITH HX OF AGITATED BEHAVIORS - PT TO CONTINUE WITH HALDOL FOR TREATMENT - SHE CANNOT TAKE RISPERDAL DUE TO SEVERE URINARY RETENTION WITH THIS MEDICATION IN THE PAST. ANEMIA - PT USUALLY ON IRON - WILL HOLD WHILE IN THE HOSPITAL. 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
[2019-08-07] MEDS: amLODIPine 5 MG (NORVASC) TAB PO SCH ×2 (09:28→20:42)
[2019-08-07] MEDS: SENNA W/DOCUSATE (SENOKOT S) TABLET PO SCH ×2 (09:30→20:42)
[2019-08-07] MEDS: PARoxetine 10 MG (PAXIL) TAB PO SCH (09:30)
[2019-08-07] MEDS: ARTIFICAL TEARS 0.4 ML UNIT DOSE (REFRESH PLUS) OU SCH ×2 (09:42→20:43)
[2019-08-07] MEDS: HALOPERIDOL 0.5 MG (HALDOL) TAB PO SCH ×3 (09:43→20:42)
--- NOTE | 2019-08-07 09:57 | Physical Therapy Evaluation ---
PT Evaluation-General Medical Diagnosis Admission Date Aug 05, 2019 at 21:15 Medical Diagnosis: L hip fx Onset Date: Aug 05, 2019 Therapy Diagnosis Therapy Diagnosis: debility, weakness Precautions Precautions/Isolations: Fall Prevention, Standard Precautions Weight Bear Status Right Lower Extremity: Right Full Weight Bearing Left Lower Extremity: Left Weight Bearing/Tolerated Referral Physician: Rachel Reason for Referral: Evaluation/Treatment Medical History Pertinent Medical History: Dementia, HTN Current History EMS secondary to fall at long-term. Patient has been non-ambulatory prior to injury. Social History Home: Skilled Nursing Prior Prior Level of Function SCALE: Activities may be completed with or without assistive devices. 1-Bboihrycvq-cckzpmu completes the activity by him/herself with no assistance from a helper. 5-Set-up or Clean-up Assistance-helper sets up or cleans up; patient completes activity. Barbeau assists only prior to or following the activity. 4-Supervision or Touching Assistance-helper provides verbal cues and/or touching/steadying and/or contact guard assistance as patient completes a ctivity. Assistance may be provided throughout the activity or intermittently. 3-Partial/Moderate Assistance-helper does LESS THAN HALF the effort. Barbeau lifts, holds or supports trunk or limbs, but provides less than half the effort. 2-Substantial/Maximal Assistance-helper does MORE THAN HALF the effort. Barbeau lifts or holds trunk or limbs and provides more than half the effort. 3-Cvkdevdwk-tkcgik does ALL the effort. Patient does none of the effort to complete the activity. Or, the assistance of 2 or more helpers is required for the patient to complete the activity. If activity was not attempted, code reason: 7-Patient Refused. 9-Not Applicable-not attempted and the patient did not perform the activity before the current illness, exacerbation or injury. 10-Not Attempted due to Environmental Limitations-(lack of equipment, weather restraints, etc.). 88-Not Attempted due to Medical Conditions or Safety Concerns. Bed Mobility: 2 Transfers (B,C,W/C): 2 Prior Devices Use: Manual wheelchair PT Evaluation-Current Subjective Patient is in bed and responds to PT by only occasionally opening eyes. Patient's daughter is present and agrees to PT transfer. Pain Numeric Pain Scale: 10-Worst Possible Pain Location: Left Location Body Site: Hip Pain Description: Acute Comment: FLACC Objective Patient Orientation: Unable to Assess Attachments: Oxygen, Urban Catheter, IV ROM/Strength ROM Lower Extremities bilateral knee flexion contracture Strength Lower Extremities unable to assess Integumentary/Posture Integumentary See nursing notes Bowel Incontinence: Yes Bladder Incontinence: Yes Neuromuscular (Tone, Coordination, Reflexes) Grossly intact Sensory Vision: Unable to Assess Hearing: Unable to Assess Transfers Roll Left to Right (QC): 1 Lying to Sitting/Side of Bed(Q: 1 Sit to Stand (QC): 1 Chair/Zen-fp-Nsckc Xfer(QC): 1 Gait Does the Patient Walk?: No and Walking Goal NOT indicated Wheelchair Training Does the Pt Use a Wheelchair?: Yes Balance Sitting Static: Poor Sitting Dynamic: Poor Standing Static: Poor Standing Dynamic: Poor Picking up an Object (QC): 88 Assessment/Needs Patient did not respond to PT. Patient was dependent to move from supine to sitting EOB and demonstrated difficulty remaining seated independently. Patient was inclined to internally rotated L hip and required guarding to prevent. Patient transferred to chair with assist of 2. Replace abduction pillow to keep LLE from internally rotating. Patient was not alert for most of transfer. Rehab Potential: Fair PT Senior Care Goals Senior Engineering Manager Goals PT Senior Engineering Manager Goals Time Frame: Aug 15, 2019 Sit to Lying (QC): 2 Lying-Sitting on Side/Bed(QC): 2 Sit to Stand (QC): 2 Roll Left to Right (QC): 2 Chair/Ujv-va-Cgnnb Xfer(QC): 2 Does the Patient Walk: No and Walking Goal NOT indicated Does the Pt use WC or Scooter?: Yes PT Plan Problem List Problem List: Activity Tolerance, Functional Strength, Safety, Balance, Transfer, Bed Mobility Treatment/Plan Treatment Plan: Continue Plan of Care Treatment Plan: Bed Mobility, Education, Functional Activity Narciso, Functional Strength, Gait, Safety, Therapeutic Exercise, Transfers Treatment Duration: Aug 15, 2019 Frequency: 5 times per week Estimated Hrs Per Day: .25 hour per day Patient and/or Family Agrees t: Yes Time/GCodes Time In: 912 Time Out: 925 Total Billed Treatment Time: 13 Total Billed Treatment 1 visit EVM 13min NICOLE AYALA PT Aug 07, 2019 09:57 POS
--- NOTE | 2019-08-07 11:26 | Progress Note - Ortho ---
Progress Note Subjective Date of Exam 08/07/19 Chief Complaint POD#1 cemented bipolar hemiarthroplasty of the left hip HPI/Events since last exam The patient is 1 day postop cemented bipolar hemiarthroplasty left hip. Her daughter is in the room with her in stage she is resting comfortably although she remains somewhat sedated since surgery. Review of Systems Reviewed and no additions or changes Allergies: Coded Allergies: No Known Drug Allergies (Unverified , 07/18/19) Home Meds Reported Medications Petrolatum,White (Vaseline) 18 Ml Jelly.ml., TP BID, TUBE APPLY TO DRY AREA ON RIGHT CHEEK TWICE DAILY UNTIL HEALED 08/06/19 Acetaminophen (Acetaminophen 8 Hour) 650 Mg Tablet.er, 650 MG PO Q4H PRN for PAIN-MILD, TAB 08/06/19 Sennosides/Docusate Sodium (Senna S Tablet) 1 Each Tablet, 1 TAB PO BID, TAB 08/06/19 Haloperidol Lactate (Haloperidol Lactate) 2 Mg/1 Ml Oral.conc, 0.25 ML PO TID, ML 08/06/19 Nystatin (Nystatin) 15 Gm Cream..g., TP QID PRN for GAULDING, TUBE 08/06/19 Carboxymethylcellulose Sodium (Refresh Tears) 15 Ml Drops, 2 DROPS OU BID, EA 08/06/19 Diclofenac Sodium (Voltaren) 100 Gm Gel..gram., TP QID PRN for JOINT PAIN, EA APPLY TO ANKLE, KNEE, RIGHT HIP, AND OR BACK 08/06/19 Na Phos,M-B/Na Phos,Di-Ba (Fleet Enema) 133 Ml Enema, 133 ML RC BID PRN for CONSTIPATION, EA 08/06/19 [Abh Gel] No Conflict Check, 0.25 ML TOP TID PRN for AGITATION ABH GEL (Ativan, Benadryl, Haldol) - apply to inner wrist or upper back TID PRN agitation 08/06/19 Nitroglycerin (Nitro-Bid) 1 Gm Oint...g., 0.5 INCH TD Q4H PRN for BP>170, EA APPLY 1/2 INCH TO CHEST WALL 08/06/19 Ferrous Sulfate (Ferrous Sulfate) 325 Mg Tablet, 325 MG PO DAILY, TAB 08/06/19 Amlodipine Besylate (Amlodipine Besylate) 5 Mg Tablet, 5 MG PO DAILY, TAB 08/06/19 Cholecalciferol (Vitamin D3) (Vitamin D3) 1,000 Unit Capsule, 1000 UNIT PO DAILY, CAP 08/06/19 Polyethylene Glycol 3350 (Miralax) 17 Gm Powd.pack, 17 GM PO DAILY PRN for CONSTIPATION-2ND LINE, EA 08/06/19 Cyanocobalamin (Vitamin B-12) (Vitamin B-12) 1,000 Mcg Tablet, 1000 MCG PO DAILY, TAB 08/06/19 Paroxetine HCl (Paxil Cr) 25 Mg Tab.er.24h, 25 MG PO DAILY, TAB 08/06/19 Discontinued Reported Medications Acetaminophen (Tylenol) 325 Mg Tablet, 325 MG PO Q6H PRN for PAIN-MILD 08/06/19 Sennosides (Senna) 8.6 Mg Tablet, 8.6 MG PO BID 08/06/19 Haloperidol Lactate (Haldol) 5 Mg/1 Ml Ampul, 2 MG PO TID PRN for AGITATION 08/06/19 Nystatin/Triamcinolone (Nystatin-Triamcinolone Cream) 15 Gm Cr, 1 APPLIC TP QID PRN for RASH, TUBE 08/06/19 Objective Exam Constitutional: [] HEENT: [] Neck: [] Cardiovascular: [] Respiratory: [] Gastrointestinal: [] Genitourinary: [] Skin: [] Back/Spine: [] Extremities: [] Dressing is intact. Abduction pillow was between the legs. She holds both hips flexed at approximately 40 with the knees flexed at approximately 60. She has no swelling in the thigh. No calf swelling or redness. Equal pulses. Symmetrical/equal position of both lower extremities. With gentle motion left hip she experiences no pain Neurologic: [] Psychiatric: [] Hematologic/lymphatic/immunologic: [] Vital Signs Vital Signs Date Time Temp Pulse Resp B/P (MAP) Pulse Ox O2 Delivery O2 Flow Rate FiO2 08/07/19 08:00 36.9 76 16 100/66 (77) 92 Nasal Cannula 2.00 08/07/19 07:02 61 08/07/19 05:04 36.9 08/07/19 05:04 36.9 72 145/61 (89) 08/07/19 03:55 38.1 99 18 171/72 (105) 96 Nasal Cannula 2.00 08/07/19 03:53 38.1 08/07/19 02:30 87 173/75 (107) 08/07/19 01:24 72 198/95 (129) 08/07/19 01:00 85 08/07/19 00:24 36.9 98 17 196/63 (107) 95 Nasal Cannula 2.00 08/06/19 20:00 95 Nasal Cannula 2.00 08/06/19 20:00 37.1 83 20 182/81 (114) 95 Nasal Cannula 2.00 08/06/19 19:00 70 08/06/19 16:23 36.6 60 14 135/69 (91) 97 OxyMask 4.00 08/06/19 15:17 OxyMask 4.00 08/06/19 14:40 70 08/06/19 13:59 36.0 83 18 135/79 (97) 90 OxyMask 4.00 08/06/19 13:35 OxyMask 5 08/06/19 13:30 36.9 16 155/74 (101) 92 OxyMask 3 08/06/19 13:25 OxyMask 5 08/06/19 13:20 16 144/79 (100) 97 OxyMask 5 08/06/19 13:10 16 164/81 (108) 97 OxyMask 10 08/06/19 13:10 OxyMask 10 08/06/19 13:00 16 152/73 (99) 96 OxyMask 10 08/06/19 12:57 OxyMask 10 08/06/19 12:57 36.4 14 132/71 (91) 93 OxyMask 10 08/06/19 12:00 OxyMask 4.00 I & O 08/07/19 07:00 Intake Total 1275 ml Output Total 905 ml Balance 370 ml Lab Results Laboratory Tests 08/07/19 06:29: Hemoglobin 11.5, Hematocrit 37 Microbiology 08/06/19 MRSA Screen - Final, Complete MRSA not isolated Assessment and Plan Assessment One-day postop cemented bipolar hemiarthroplasty left hip Problem List Unchanged Plan Continue out of bed to chair as tolerated. The patient is a nonambulator. Continuing with abduction pillow Final Diagonsis Status post cemented bipolar hemiarthroplasty left hip for displaced subcapital fracture Level of the visit: Level 3 Clinical Quality Measures DVT/VTE Risk/Contraindication: Risk Factor Score Per Nursin RFS Level Per Nursing on Admit: 4+=Very High STEVAN DOUGHERTY MD Aug 07, 2019 11:26 POS
--- NOTE | 2019-08-07 13:21 | Anesthesia-Regional Post-Op ---
Regional Patient Condition Mental Status: Alert, Oriented x3 Circulation: Same as Pre-Op Headache: Absent Sensation: Full Recovery Motor Block: Absent Post Op Complications Complications None Follow Up Care/Instructions Patient Instructions None needed. Anesthesia/Patient Condition Patient is doing well, no complaints, stable vital signs, no apparent adverse anesthesia problems. No complications reported per nursing. D/C home per [facility] Criteria: TE Lewis CRNA Aug 07, 2019 13:21 POS
--- NOTE | 2019-08-07 16:50 | NUR ---
Met with pt"s daughter Heath and son Ladarius who is here from [place]. Discussed continued care options as pt appears to need more medical care then her current assisted living placement can provide Although the assisted living facility did state they were willing for her to return to their facility. Daughter asked for bed availability and rates of .local shelter facilities. This information was given to them for their review They also met with Dr. Marlene Lopez to discuss pt's medical status. They then met with Sharla Strauss and decided on pt placement plan at [facility] for her continued care. Will follow and assist.
[2019-08-07] MEDS: NS IV 1000 ML 1,000 ML IV SCH (16:57)
[2019-08-08] MEDS: ENOXAPARIN 40 MG/0.4 ML (LOVENOX) SYR SC SCH (00:27)
[2019-08-08] MEDS: LACTATED RINGERS 1,000 ML IV SCH (00:27)
[2019-08-08 00:28] VITALS: BP 160/82
[2019-08-08] MEDS: ACETAMINOPHEN 325 MG TABLET PO PRN (00:37)
[2019-08-08] MEDS: fentaNYL INJECTION 100 MCG/2 ML AMP IV PRN (02:54)
[2019-08-08 03:52] VITALS: BP 127/83
[2019-08-08 05:56] LABS: HEMOGLOBIN 11.3 G/DL (11.5-16.0)
[2019-08-08 08:00] VITALS: BP 141/74
[2019-08-08] MEDS: ARTIFICAL TEARS 0.4 ML UNIT DOSE (REFRESH PLUS) OU SCH (09:15)
[2019-08-08] MEDS: HYDROcodone/APAP 5 MG/325 MG (LORTAB) TAB PO PRN (09:15)
[2019-08-08] MEDS: PARoxetine 10 MG (PAXIL) TAB PO SCH (09:16)
[2019-08-08] MEDS: HALOPERIDOL 0.5 MG (HALDOL) TAB PO SCH ×2 (09:16→13:25)
[2019-08-08] MEDS: SENNA W/DOCUSATE (SENOKOT S) TABLET PO SCH (09:16)
[2019-08-08] MEDS: amLODIPine 5 MG (NORVASC) TAB PO SCH (09:17)
--- NOTE | 2019-08-08 11:25 | Discharge Summary ---
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 SHE PRESENTED TO THE [facility] AFTER SUSTAINING A FALL AT THE NURSING WHERE SHE RESIDES. SHE HAS BEEN NON-AMBULATORY FOR QUITE SOME TIME DUE TO HER ADVANCED DEMENTIA. SHE HAS HAD SEVERAL FALLS OVER THE PAST MONTH WITH THIS LAST FALL RESULTING IN A LEFT SUBCAPITAL HIP FRACTURE. Discharge Summary Procedures: LEFT HIP FRACTURE REPAIR Consultations ORTHOPEDIC SURGEON Discharge Physical Examination Allergies: Coded Allergies: No Known Drug Allergies (Unverified , 07/18/19) Vitals & I&Os Vital Signs Date Time Temp Pulse Resp B/P (MAP) Pulse Ox O2 Delivery O2 Flow Rate FiO2 08/08/19 10:33 Nasal Cannula 2.00 08/08/19 08:00 37.8 84 18 141/74 (96) 95 General Appearance: Alert, Other (NOT ORIENTED TO PERSON, PLACE) HEENT: Atraumatic Respiratory: Clear to Auscultation, Normal Air Movement Cardiovascular: Regular Rate, Other (II/ TALI) Abdominal: Normal Bowel Sounds, Soft, No Tenderness Extremities: No Clubbing, No Cyanosis Skin: No Breakdown Neuro: Other (CONFUSED) Psych/Mental Status: Other (NOT ORIENTED TO PERSON, PLACE OR TIME) Hospital Course Was the Problem List Reviewed?: Yes LEFT SUBCAPITAL HIP FRACTURE HYPERTENSION DEMENTIA - ADVANCED ANEMIA 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 DEMENTIA - ADVANCED - WITH HX OF AGITATED BEHAVIORS - PT TO CONTINUE WITH HALDOL FOR TREATMENT - SHE CANNOT TAKE RISPERDAL DUE TO SEVERE URINARY RETENTION WITH THIS MEDICATION IN THE PAST. ANEMIA - PT USUALLY ON IRON - WILL RESTART ON DISCHARGE - WAS ON HOLD IN HOSPITAL. 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 Pending Labs Laboratory Tests 08/08/19 05:45: Hemoglobin 11.3, Hematocrit 37 Discharge Condition at discharge STABLE Instructions to patient/family Please see electronic discharge instructions given to patient. Discharge Medications Reviewed and agree with Discharge Medication list on patient's Discharge Instruction sheet Clinical Quality Measures DVT/VTE Risk/Contraindication: Risk Factor Score Per Nursin RFS Level Per Nursing on Admit: 4+=Very High TARA WALLER MD Aug 08, 2019 11:25 POS
[2019-08-08] MEDS ORDERED: AMLO5TAB9 PO (11:41)
[2019-08-08] MEDS ORDERED: HYDR-3922 PO (11:41)
[2019-08-08] MEDS ORDERED: ABH GEL TOP (11:41)
[2019-08-08] MEDS ORDERED: ACHD5005 PO (11:41)
--- NOTE | 2019-08-08 11:44 | Discharge Inst-Skilled Nursing ---
Discharge Inst-Skilled NF Reconcile Patient Problems Problems Reviewed?: Yes Patient Instructions Patient Problems: DEMENTIA HIP FRACTURE - LEFT HYPERTENSION Consult/Follow Up/Orders Follow Up Appt.: [facility] [address] HERNANDEZ Skilled NF Admit to: [facility] Certification ([facility]) I certify that SNF services are required to be given on an inpatient basis because of the above named patient's need for halfway care on a continuing basis for the conditions(s) for which he/she was receiving inpatient hospital services prior to his/her transfer to the SNF. Fpc Facility Order: Nursing Services, Global Transportation Manager-Evaluate & Treat, Physical Therapy-Evaluate & Treat, Speech Language-Evaluate & Treat Oxygen Delivery Method: Nasal Cannula Discharge Diet: Regular Diet New & Resume Previous Orders Tara Lopez Aug 08, 2019 11:41 TARA LOPEZ MD Aug 08, 2019 11:44 POS
--- NOTE | 2019-08-08 11:45 | Progress Note - Ortho ---
Progress Note Subjective Date of Exam 08/08/19 Chief Complaint 2 days postop cemented bipolar hemiarthroplasty left hip HPI/Events since last exam Patient is resting comfortably in her bed with abduction pillow between her legs. Her daughter tells me that they're transferring her mother to a group home. Dressing is artery been changed today and was reported as redness or drainage Review of Systems Reviewed and no additions or changes Allergies: Coded Allergies: No Known Drug Allergies (Unverified , 07/18/19) Home Meds Active Scripts Hydrocodone Bit/Acetaminophen (Hydrocodone/Acetaminophen 5/325mg Tablet) 1 Tab Tab, 0.5-1 TAB PO Q4H PRN for PAIN-MODERATE, #90 TAB Prov:TARA WALLER MD 08/08/19 Hydralazine HCl (Hydralazine HCl) 10 Mg Tablet, 10 MG PO Q6HR PRN for BLOOD PRESSURE, #60 TAB 3 Refills Prov:TARA WALLER MD 08/08/19 [Abh Gel] No Conflict Check, 0.25 ML TOP TID PRN for AGITATION, #120 3 Refills ABH GEL (Ativan, Benadryl, Haldol) - apply to inner wrist or upper back TID PRN agitation Prov:TARA WALLER MD 08/08/19 Amlodipine Besylate (Amlodipine Besylate) 5 Mg Tablet, 5 MG PO BID, #60 TAB 6 Refills Prov:TARA WALLER MD 08/08/19 Reported Medications Petrolatum,White (Vaseline) 18 Ml Jelly.ml., TP BID, TUBE APPLY TO DRY AREA ON RIGHT CHEEK TWICE DAILY UNTIL HEALED 08/06/19 Acetaminophen (Acetaminophen 8 Hour) 650 Mg Tablet.er, 650 MG PO Q4H PRN for PAIN-MILD, TAB 08/06/19 Sennosides/Docusate Sodium (Senna S Tablet) 1 Each Tablet, 1 TAB PO BID, TAB 08/06/19 Haloperidol Lactate (Haloperidol Lactate) 2 Mg/1 Ml Oral.conc, 0.25 ML PO TID, ML 08/06/19 Nystatin (Nystatin) 15 Gm Cream..g., TP QID PRN for GAULDING, TUBE 08/06/19 Carboxymethylcellulose Sodium (Refresh Tears) 15 Ml Drops, 2 DROPS OU BID, EA 08/06/19 Diclofenac Sodium (Voltaren) 100 Gm Gel..gram., TP QID PRN for JOINT PAIN, EA APPLY TO ANKLE, KNEE, RIGHT HIP, AND OR BACK 08/06/19 Na Phos,M-B/Na Phos,Di-Ba (Fleet Enema) 133 Ml Enema, 133 ML RC BID PRN for CONSTIPATION, EA 08/06/19 Nitroglycerin (Nitro-Bid) 1 Gm Oint...g., 0.5 INCH TD Q4H PRN for BP>170, EA APPLY 1/2 INCH TO CHEST WALL 08/06/19 Ferrous Sulfate (Ferrous Sulfate) 325 Mg Tablet, 325 MG PO DAILY, TAB 08/06/19 Cholecalciferol (Vitamin D3) (Vitamin D3) 1,000 Unit Capsule, 1000 UNIT PO DAILY, CAP 08/06/19 Polyethylene Glycol 3350 (Miralax) 17 Gm Powd.pack, 17 GM PO DAILY PRN for CONSTIPATION-2ND LINE, EA 08/06/19 Cyanocobalamin (Vitamin B-12) (Vitamin B-12) 1,000 Mcg Tablet, 1000 MCG PO DAILY, TAB 08/06/19 Paroxetine HCl (Paxil Cr) 25 Mg Tab.er.24h, 25 MG PO DAILY, TAB 08/06/19 Discontinued Reported Medications Acetaminophen (Tylenol) 325 Mg Tablet, 325 MG PO Q6H PRN for PAIN-MILD 08/06/19 Sennosides (Senna) 8.6 Mg Tablet, 8.6 MG PO BID 08/06/19 Haloperidol Lactate (Haldol) 5 Mg/1 Ml Ampul, 2 MG PO TID PRN for AGITATION 08/06/19 Nystatin/Triamcinolone (Nystatin-Triamcinolone Cream) 15 Gm Cr, 1 APPLIC TP QID PRN for RASH, TUBE 08/06/19 Objective Exam Constitutional: [] HEENT: [] Neck: [] Cardiovascular: [] Respiratory: [] Gastrointestinal: [] Genitourinary: [] Skin: [] Back/Spine: [] Extremities: [] Abduction pillow between the legs. Hip and knees are flexed. No internal or external rotation differences between the lower extremities. Minimal pain with gentle range of motion. swelling or redness. Difficult to assess sensory exam Neurologic: [] Psychiatric: [] Hematologic/lymphatic/immunologic: [] Vital Signs Vital Signs Date Time Temp Pulse Resp B/P (MAP) Pulse Ox O2 Delivery O2 Flow Rate FiO2 08/08/19 10:33 Nasal Cannula 2.00 08/08/19 08:00 37.8 84 18 141/74 (96) 95 Nasal Cannula 2.00 08/08/19 07:00 82 08/08/19 03:52 37.5 92 18 127/83 (98) 90 Nasal Cannula 2.00 08/08/19 01:00 88 08/08/19 00:37 37.4 08/08/19 00:28 37.4 86 18 160/82 (108) 93 Nasal Cannula 2.00 08/07/19 20:40 Room Air 08/07/19 20:10 37.2 80 16 148/74 (98) 94 Nasal Cannula 2.00 08/07/19 19:00 71 08/07/19 16:00 36.6 80 18 138/78 (98) 95 Nasal Cannula 2.00 08/07/19 12:59 78 08/07/19 12:49 Nasal Cannula 2.00 08/07/19 12:00 36.8 93 16 152/67 (95) 94 Nasal Cannula 2.00 I & O 08/08/19 07:00 Intake Total 1360 ml Output Total 200 ml Balance 1160 ml Lab Results Laboratory Tests 08/08/19 05:45: Hemoglobin 11.3L, Hematocrit 37 Microbiology 08/06/19 MRSA Screen - Final, Complete MRSA not isolated Assessment and Plan Assessment Doing well postop day number 2 Problem List Unchanged Plan Continue with abduction pillow between the legs. Continue with heel protection since the patient is flexing the hip and knees up and is an increased risk for skin breakdown over the heels. Discharge to group home. Continue bed to chair. Patient is a nonambulator. Follow-up in office in approximately 2 weeks postop for staple removal and x-rays Final Diagonsis Status post cemented bipolar hemiarthroplasty left hip Level of the visit: Level 3 Clinical Quality Measures DVT/VTE Risk/Contraindication: Risk Factor Score Per Nursin RFS Level Per Nursing on Admit: 4+=Very High STEVAN DOUGHERTY MD Aug 08, 2019 11:45 POS
[2019-08-08 12:00] VITALS: BP 150/70
--- NOTE | 2019-08-08 13:23 | NUR ---
TELEMETRY REMOVED AND DRESSING CHANGED TO LEFT HIP. INC CLEAN AND DRY. SLEEPY AND UNABLE TO TAKE PO AT THIS TIME. HALDOL HELD. ATTEMPTED TO CALL REPORT TO [facility] WITH NO ANSWER. MESSAGE SENT IN DC PACKET FOR NURSE TO CALL ME FOR REPORT. FAMILY AT BEDSIDE.
--- NOTE | 2019-08-08 14:07 | NUR ---
Arrangements completed for pt discharge to [facility] for continued care. Discharge orders,scripts, and discharge instructions and recent progress notes given to [facility] staff. CARE assessment and guardianship paper work faxed to the facility.
--- NOTE | 2019-08-08 14:18 | NUR ---
DC'D TO [facility] PER WC ACCOMPANIED BY FAMILY AND NH PERSONNEL.
[2019-08-09] MEDS ORDERED: NS IV 1000 ML 1,000 ML ONE (02:22)
== END 2019-08-08 14:19 | DRG 470 ==
LOC: EDUNIT# 19:11 → ER FS 19:12 → 4TH 21:15
PROVIDERS: ADMIT Family Medicine; ATTEND Family Medicine
PROC: 0SRS019 Replacement of Left Hip Joint, Femoral Surface with Metal Synthetic Substitute, Cemented, Open Approach (ICD-10-PCS; principal; 2019-08-06 10:35)
DX: S72.012A Unspecified intracapsular fracture of left femur, initial encounter for closed fracture (principal); E87.5 Hyperkalemia; I10 Essential (primary) hypertension; F03.90 Unspecified dementia, unspecified severity, without behavioral disturbance, psychotic disturbance, mood disturbance, and anxiety; F41.9 Anxiety disorder, unspecified; D64.9 Anemia, unspecified; R54 Age-related physical debility; Z66 Do not resuscitate; W19.XXXA Unspecified fall, initial encounter; Y92.129 Unspecified place in nursing home as the place of occurrence of the external cause; Z85.038 Personal history of other malignant neoplasm of large intestine; Z85.828 Personal history of other malignant neoplasm of skin
CPT/HCPCS: 36415; 51702; 70450; 71045; 72125; 73501; 73502; 80053; 85014; 85018; 85025; 85610; 85730; 87081; 96361; 96374; 96375; 96376

== ENCOUNTER → 2019-08-20 | Outpatient (CLI) | payer MEDICARE, OTHER ==
[~2019-08-20] MED LIST: ABH GEL TOP; ACET-2429 PO; ACET325T38 PO; ACHD5005 PO; AMLO5TAB9 PO; CARB15DR OU; CHOL10007 PO; CYAN-41 PO; DICL100G18 TP; FERR325T18 PO; HALO2ORA PO; HALO5AMP PO; HYDR-3922 PO; NA P133E22 RC; NITR1OIN TD; NSTR15C TP; NYST15CR TP; PARO25TA15 PO; PETR18JE3 TP; POLY17PO6 PO; SENN-141 PO; SENN-145 PO
--- NOTE | 2019-08-20 09:26 | Diagnostic Imaging Report ---
INDICATION: Follow-up hip arthroplasty. COMPARISON: 08/06/2019 FINDINGS: Single frontal radiographic view of the left hip was obtained and again demonstrates postsurgical changes of previous total left hip replacement. Femoral and acetabular components appear appropriately positioned and aligned in respect to one another on this single view. No periprosthetic fracture is seen. No unexpected radiopaque foreign bodies are identified. Note is made of large amount of stool within the rectum. IMPRESSION: 1. Expected postsurgical changes to the left hip as described above. 2. Large amount of stool within the rectum. Please correlate for impaction. Dictated by: Dictated on workstation # [id number]
== END ==
LOC: ORTHO 08:48
PROVIDERS: ATTEND Orthopaedic Surgery
DX: R19.5 Other fecal abnormalities (principal); Z96.649 Presence of unspecified artificial hip joint; Z98.890 Other specified postprocedural states
CPT/HCPCS: 73501